=== PATIENT | male | born 1995 | race Caucasian/White ===

== ENCOUNTER → 2022-07-28 | Outpatient (CLI) | payer MEDICAID, SELFPAY ==
--- NOTE | 2022-07-28 07:45 | MRI_ITS ---
STUDY: MRI RIGHT KNEE REASON FOR EXAM: Male, 27 years old. Knee pain after injury. TECHNIQUE: Standardized fat and water weighted pulse sequences were obtained in all 3 orthogonal planes. COMPARISON: None. 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 Normal hyaline cartilage of the medial femorotibial compartment. Normal medial femoral condyle and tibial plateau. Moderate MCL sprain with periligamentous edema without discontinuity (coronal series 7 images 12-19). Normal distal semimembranosus, gracilis and semitendinosus tendons. Normal lateral meniscus. Normal hyaline cartilage of the lateral femorotibial compartment. Normal lateral femoral condyle and tibial plateau. Normal proximal tibiofibular articulation. Normal lateral collateral (fibular) ligament. Normal popliteus tendon. Normal biceps femoris tendon. Normal anterior cruciate ligament (ACL). Normal posterior cruciate ligament (PCL). 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 Normal hyaline cartilage of the patellofemoral compartment. Normal medial and lateral patellar retinaculum. Normal quadriceps tendon. Normal patellar tendon. Normal Hoffa''s fat pad. Joint effusion with lateral and medial plica (axial series 3 images 17 and 25). Mild vastus medialis muscle strain (axial series 3 images 15-22). The otherwise visualized osseous structures are unremarkable. 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 Moderate MCL sprain with periligamentous edema without discontinuity. 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 Vastus medialis muscle strain. Joint effusion with medial and lateral plicae. Electronically Signed: Arcenio Tyson, at 13:14 EST ,
== END | disposition home or self-care (01) ==
LOC: MRI 07:32
PROVIDERS: Referring Provider Physician Assistant; Visit Provider Physician Assistant
DX: M25.561 Pain in right knee (principal)
CPT/HCPCS: 73721